=== PATIENT | female | born 1995 | race Caucasian/White ===

== ENCOUNTER 2023-05-13 22:00 | Inpatient (IN) | payer OTHER ==
[2023-05-13] MEDS ORDERED: ELECTROLYTE-148 SOLN 1,000 ML IV SCH (23:00)
[2023-05-13 23:35] LABS: BASO % 0.3 % (0-2.0); EOS % 0.4 % (0-4.5); HEMATOCRIT 29.5 % (32.4-45.2); HEMOGLOBIN 9.5 GM/dL (10.7-15.3); LYMPH % 15.1 % (8-40); MCH 26.4 pg (25.7-33.7); MCHC 32.3 g/dl (32.0-36.0); MEAN CELL VOLUME 81.6 fl (80-96); MEAN PLT VOLUME 9.1 fl (7.5-11.1); MONO % 5.9 % (3.8-10.2); NEUT % 78.3 % (42.8-82.8); PLATELET COUNT 262 10^3/uL (134-434); RBC 3.61 M/mm3 (3.60-5.2); RDW 15.1 % (11.6-15.6); WHITE BLOOD COUNT 12.8 K/mm3 (4.0-10.0)
[2023-05-13 23:41] LABS: INR 0.97 (0.83-1.09); PROTHROMBIN TIME (PATIENT) 11.3 SEC (9.7-13.0)
[2023-05-13 23:43] LABS: ACTIVATED PTT 26.7 SECONDS (25.2-36.5)
[2023-05-14] LABS: BLOOD UREA NITROGEN 7.6 mg/dL (7-18); CALCIUM 8.9 mg/dL (8.5-10.1)
[2023-05-14 00:04] LABS: CREATININE 0.6 mg/dL (0.55-1.3)
[2023-05-14 00:16] VITALS: BMI 33.6
[2023-05-14] MEDS ORDERED: PROMETHAZINE HCL 25 MG/1 ML VIAL IVPB ONE (01:00)
[2023-05-14] MEDS ORDERED: PROMETHAZINE HCL 25 MG/1 ML VIAL ONE (01:23)
[2023-05-14] MEDS ORDERED: BUTORPHANOL TARTRATE 1 MG/ML VIAL ONE (01:23)
[2023-05-14] MEDS ORDERED: BUTORPHANOL TARTRATE 2 MG/ML VIAL IVPB ONE (02:45)
[2023-05-14] MEDS ORDERED: OXYTOCIN 20 UNITS in 0.9% NS 20 UNIT/1,000 ML INFUS.BAG IV ONE (04:19)
[2023-05-14] MEDS ORDERED: FENTANYL/BUPIVACAINE/NS/PF - PCEA - 50 ML DISP.SYRIN EP ONE ×2 (05:02→09:46)
[2023-05-14] MEDS ORDERED: LIDO 2%/EPI 1:200000 PRESRVFRE (20 ML SDVIAL) ONE (05:12)
[2023-05-14] MEDS ORDERED: BUPIVACAINE HCL/PF 0.25% (2.5MG/ML) 10 ML VIAL ONE (05:12)
[2023-05-14] MEDS ORDERED: NALOXONE HCL 0.4 MG/ML VIAL IVPUSH PRN (06:18)
[2023-05-14] MEDS ORDERED: FENTANYL/BUPIVACAINE/NS/PF - PCEA - 50 ML DISP.SYRIN EP SCH (06:30)
[2023-05-14] MEDS ORDERED: AMPICILLIN SODIUM 2 GM VIAL ONE (08:17)
[2023-05-14] MEDS ORDERED: AMPICILLIN - 2 GM in SODIUM CHLORIDE 100 ML IVPB ONE (08:22)
[2023-05-14 11:47] LABS: CORD BASE EXCESS -7.2 mmol/L (0-2); CORD HCO3 21.5 mmHg (20-29); CORD PCO2 55.5 mmHg (30-78); CORD pH 7.207 (7.14-7.44)
[2023-05-14 11:49] LABS: CORD BASE EXCESS -5.1 mmol/L (0-2); CORD HCO3 19.2 mmHg (20-29); CORD PCO2 34.6 mmHg (30-78); CORD pH 7.363 (7.14-7.44)
[2023-05-14] MEDS ORDERED: IBUPROFEN 600 MG TABLET (FP) PO PRN (14:08)
[2023-05-14] MEDS ORDERED: BENZOCAINE 20% 57 GM BOTTLE TP PRN (15:23)
[2023-05-14] MEDS ORDERED: BENZOCAINE 28 GM HEMORRHOIDAL OINTMENT TP PRN (15:23)
[2023-05-14] MEDS ORDERED: ACETAMINOPHEN 325 MG TABLET (FP) PO PRN (15:23)
[2023-05-14] MEDS ORDERED: oxyCODONE HCL 5 MG TABLET PO PRN (15:23)
[2023-05-14] MEDS ORDERED: WITCH HAZEL 50% (TUCKS) 40 PAD/JAR PAD TP PRN (15:23)
[2023-05-14] MEDS ORDERED: METHYLERGONOVINE MALEATE 0.2 MG/1 ML AMP IM PRN (15:23)
[2023-05-14] MEDS ORDERED: BISACODYL 10 MG SUPP.RECT RC PRN (15:23)
[2023-05-14] MEDS ORDERED: OXYTOCIN 20 UNITS in 0.9% NS 20 UNIT/1,000 ML INFUS.BAG IV SCH (15:30)
[2023-05-15 07:34] LABS: BASO % 0.4 % (0-2.0); EOS % 0.6 % (0-4.5); HEMATOCRIT 23.7 % (32.4-45.2); HEMOGLOBIN 7.6 GM/dL (10.7-15.3); LYMPH % 15.9 % (8-40); MCH 26.5 pg (25.7-33.7); MCHC 32.1 g/dl (32.0-36.0); MEAN CELL VOLUME 82.8 fl (80-96); MEAN PLT VOLUME 9.6 fl (7.5-11.1); MONO % 5.7 % (3.8-10.2); NEUT % 77.4 % (42.8-82.8); PLATELET COUNT 224 10^3/uL (134-434); RBC 2.86 M/mm3 (3.60-5.2); RDW 14.9 % (11.6-15.6)
[2023-05-15] MEDS: IBUPROFEN 600 MG TABLET (FP) PO PRN ×2 (08:28→18:10)
[2023-05-15] MEDS ORDERED: SENNOSIDES/DOCUSATE COMBO (SENNA PLUS) TABLET (UD) PO PRN (22:00)
[2023-05-16 10:04] VITALS: BP 105/68; PULSE 86; RESP 18; TEMP 98.3
[2023-05-19 13:34] LABS: POC NITRAZINE POS
== END 2023-05-16 12:45 | disposition home or self-care (01) | DRG 560 ==
LOC: JLDR 22:00 → J3W 05-14 13:05
PROVIDERS: ADMIT Obstetrics & Gynecology; ATTEND Obstetrics & Gynecology
PROC: 10E0XZZ Delivery of Products of Conception, External Approach (ICD-10-PCS; principal; 2023-05-14)
PROC: 0HQ9XZZ Repair Perineum Skin, External Approach (ICD-10-PCS; 2023-05-14)
DX: O69.81X0 Labor and delivery complicated by cord around neck, without compression, not applicable or unspecified (principal); O70.0 First degree perineal laceration during delivery; Z3A.38 38 weeks gestation of pregnancy; O99.02 Anemia complicating childbirth; D64.9 Anemia, unspecified; Z37.0 Single live birth
CPT/HCPCS: 36415; 36600; 80048; 82803; 83986-QW; 85025; 85610; 85730; 86780; 86850; 86900; 86901